=== PATIENT | female | born 1995 | race Caucasian/White ===

== ENCOUNTER 2017-04-24 14:20 | Inpatient (IN) | payer OTHER ==
[~2017-04-24] VITALS: Ht 160 cm; Wt 53.5 kg
--- NOTE | 2017-04-24 14:50 | NUR ---
Intake assessment; Patient is a 21 year old female, AOX4, presented to [facility] to detoxify from ETOH and Klonopin. Patient flew in from [place] accompanied by a friend and arrived at intake at approximately 1430. She is the primary source of information. Patient appears calm, cooperative and slightly nervous. Patient's admitting vital signs are as follows; BP 103/68, HR 79, temperature 97.3, Respiration 18, Spo2 98%, denies pain and allergies. Educated patient regarding unit protocol and policies, patient verbalized understanding. Will continue with further nursing assessment when patient is up on the unit.
[2017-04-24] MEDS ORDERED: QUET50TA PO (14:52)
[2017-04-24] MEDS ORDERED: FLUO20TA28 PO (14:52)
[2017-04-24] MEDS ORDERED: ZOLP10TA6 PO (14:52)
[2017-04-24] MEDS ORDERED: ONDANSETRON 4 MG/2 ML VIAL IM PRN (15:30)
[2017-04-24] MEDS ORDERED: LORAZEPAM 1 MG TABLET PO PRN ×2 (15:30)
[2017-04-24] MEDS ORDERED: LOPERAMIDE HCL 2 MG CAPSULE PO PRN ×2 (15:30)
[2017-04-24] MEDS ORDERED: MIRALAX 17 GM POWD.PACK PO PRN (15:30)
[2017-04-24] MEDS ORDERED: MAG HYDROX/AL HYDROX/SIMETH 30 ML LIQUID UDC PO PRN (15:30)
[2017-04-24] MEDS ORDERED: LORAZEPAM 2 MG/1 ML VIAL IM PRN (15:30)
[2017-04-24] MEDS ORDERED: ONDANSETRON ODT 4 MG TAB.RAPDIS SL PRN (15:30)
[2017-04-24] MEDS ORDERED: diphenhydrAMINE 50 MG CAPSULE PO PRN (15:30)
[2017-04-24] MEDS ORDERED: DICYCLOMINE HCL 20 MG TABLET PO PRN (15:30)
[2017-04-24] MEDS ORDERED: ACETAMINOPHEN 325 MG TABLET PO PRN (15:30)
--- NOTE | 2017-04-24 15:30 | NUR ---
Admission note; Patient is a 21 year old female, AOX4, presented to [facility] to detoxify from ETOH and Klonopin. Patient flew in from [place] accompanied by a friend and arrived at intake at approximately 1430. She is the primary source of information. Patient is cooperative,slightly nervous complaining of episodes of loose stool, mild headache. Patient's admitting vital signs are as follows; BP 103/68, HR 79, temperature 97.3, Respiration 18, Spo2 98%, denies pain. Patient denies allergies or history of seizures. Discussed substance use history. Patient started drinking alcohol at age [age] years old, but did not develop a pattern of daily dependence until she reached the age of 19 and has been struggling with alcoholism since that time. For the past 1.5 years, patient reports consuming up to eight servings of alcohol on a daily basis, each serving being either 10 ounces of wine or 4-6 mL of vodka. Last drink was consumed on the evening prior to admission. She also reported taking prescription clonazepam 1-3 mg daily , prescribed to her when she was 19 y/o for anxiety, last used clonazepam 4 days prior to admission. She has struggled with multiple attempts at sobriety. Patient has never been to detox before. Discussed medical and psych history. Patient was diagnosed with Anxiety, insomnia and was recently hospitalized in a psychiatric facility after a suicide attempt end of February 2017. She reports three suicide attempts in the past, multiple healed scars on bilateral wrist noted, sites are intact. Patient lives with a room mate in [place].Patient does not have a primary care physician. patient's psychiatrist is Dr. Shelby Tucker. Patient refuses PNA vaccination. Current CIWA is 2. Dr. Degroot notified. Patient oriented to unit by EX ASSISTANT/PROGRAM DIRECTOR. Safety measures secured. She denies passive or active suicidal ideations. Will continue to monitor patient.
[2017-04-24 16:00] VITALS: BP 113/80
[2017-04-24 16:07] LABS: *AMPHETAMINE, URINE NEGATIVE (NEGATIVE); *BARBITURATE, URINE NEGATIVE (NEGATIVE); *CANNABINOID, URINE NEGATIVE (NEGATIVE); *COCCAINE, URINE NEGATIVE (NEGATIVE); *OPIATE, URINE NEGATIVE (NEGATIVE); *PHENCYCLIDINE SCREEN,URINE NEGATIVE (NEGATIVE)
[2017-04-24 16:26] LABS: *URINE HCG, QUAL NEGATIVE (NEGATIVE)
[2017-04-24] MEDS ORDERED: THIAMINE HCL 200 MG/2 ML VIAL IM ONE (17:00)
--- NOTE | 2017-04-24 18:24 | NUR ---
End of shift note; Patient is AOX4. Patient was seen and evaluated by MD. Patient to start Ativan taper on 04/25/17. Stool sample was collected for occult blood and MRSA nares collected. Patient remained compliant with treatment plan. All safety measures secured. Met all needs.
--- NOTE | 2017-04-24 19:10 | NUR ---
Start of Shift Patient Received. Patient is in her room, awake, alert and oriented. Patient is noted reading a book and verbalized Im just trying to pass time in reading. Patient is a 21 year old female, admitted on 04/24/17 for ETOH and Benzo Dependence, under the care of Dr. Degroot. Patient is able to verbalize no known allergies, wishes to be full code, following a regular diet, skin noted intact with several scars due to self-mutilation. Patient denies suicidal and homicidal ideations. Patients past medical history verbalized as insomnia, anxiety, ADD, and Suicide Attempt. Per endorsement, patient is set to start a 4 day Ativan taper Tomorrow 04/25/17 with a one time dose to be given tonight at 2100. All needs attended to promptly. Will continue plan of care as ordered.
[2017-04-24 19:46] LABS: *OCCULT BLOOD STOOL POSITIVE (NEGATIVE)
[2017-04-24 20:04] VITALS: BP 115/71
[2017-04-24] MEDS ORDERED: LORAZEPAM 1 MG TABLET PO SCH (21:00)
[2017-04-24 21:48] LABS: ETHANOL < 3 MG/DL (0-0)
[2017-04-24 21:49] LABS: ALKALINE PHOSPHATASE 101 U/L (50-136); AMYLASE 97 U/L (25-115); BILIRUBIN,TOTAL 0.3 mg/dL (0.2-1.0); CARBON DIOXIDE 31 mmol/L (21-32); CHLORIDE 103 mmol/L (98-107); CREATININE 0.8 mg/dL (0.6-1.3); GLUCOSE 84 mg/dL (74-106); LIPASE 113 U/L (73-393); MAGNESIUM 1.9 mg/dL (1.8-2.4); POTASSIUM 3.8 mmol/L (3.5-5.1); TOTAL PROTEIN, SERUM 7.7 g/dL (6.4-8.2); UREA NITROGEN, BLOOD 15 mg/dL (7-18)
[2017-04-24 22:01] LABS: THYROID STIMULATING HORMONE 1.847 mIU/mL (0.358-3.740)
[2017-04-24 22:02] LABS: BASOPHILS # (AUTO) 0.1 K/uL (0.0-8.0); BASOPHILS % (AUTO) 0.6 % (0.0-2.0); EOSINOPHILS # (AUTO) 0.3 K/uL (0.0-0.7); EOSINOPHILS % (AUTO) 2.7 % (0.0-7.0); HEMATOCRIT 43.6 % (37-47); HEMOGLOBIN 14.9 G/DL (12.0-16.0); LYMPHOCYTES # (AUTO) 3.4 K/UL (0.8-4.8); LYMPHOCYTES % (AUTO) 36.3 % (20.5-51.5); MEAN CORPUSCULAR HEMOGLOBIN 32.9 UUG (27.0-31.0); MEAN CORPUSCULAR HGB CONC 34 g/dL (32.0-37.0); MONOCYTES # (AUTO) 0.7 K/UL (0.1-1.30); MONOCYTES % (AUTO) 7.3 % (0.0-11.0); NEUTROPHILS # (AUTO) 4.9 K/UL (1.8-8.9); NEUTROPHILS % (AUTO) 53.1 % (38.5-71.5); PLATELET COUNT (AUTO) 283 K/UL (150-450); RED BLOOD CELL COUNT(AUTO) 4.54 MIL/UL (4.2-5.4); WHITE BLOOD COUNT (AUTO) 9.4 K/UL (4.0-11.2)
[2017-04-24 22:11] VITALS: BP 126/60
[2017-04-24 22:36] LABS: ALANINE AMINOTRANSFERASE 24 U/L (14-59)
[2017-04-24 22:44] LABS: ASPARTATE AMINOTRANSFERASE 32 U/L (15-37)
--- NOTE | 2017-04-24 23:30 | NUR ---
PRN Medication Reassessment Patient noted in the hallway returning from the snack room. Patient verbalized "I just woke up really thirsty. But Im going to go back to sleep." Patient was also able to verbalize "the medication really helped me to calm down enough to fall asleep." Patient noted getting back into bed. Will continue to monitor.
[2017-04-25 00:49] VITALS: BP 114/73
[2017-04-25 04:42] VITALS: BP 116/79
--- NOTE | 2017-04-25 07:06 | NUR ---
Start of Shift Endorsement received from nightshift nurse. Pt is a 21 y/o female admitted for alcohol and Klonopin dependence. Pt has been placed on a 4 day Modified taper. Pt is tolerating the taper well AEB CIWA 3 at 0400. Pt received PRN Ativan and Benadryl during nightshift. Pt reports sleeping 6 hours. VS WNL. Full Code. PT is alert and oriented x4. Pt is in STABLE condition at this time. Remains compliant with medication and diet regimen. All needs have been met, All safety measures in place per hospital policy. Bed in lowest position, side rails up x2, call-light within reach. Will continue to monitor
--- NOTE | 2017-04-25 07:15 | NUR ---
End of Shift Patient is in bed sleeping but easily arousable to verbal stimuli. Breathing even and non labored. No signs of pain or discomfort noted. Patient is a 21 year old female, admitted on 04/24/17 for ETOH and Benzo Dependence, under the care of Dr. Degroot. Patient is able to verbalize no known allergies, wishes to be full code, following a regular diet, skin noted intact. Patient denies suicidal and homicidal ideations. Patients past medical history verbalized as insomnia, anxiety, ADD, and Suicide Attempt. Patient was given PRN Ativan for CIWA of 10 with medication noted to be effective. Reassessment CIWA noted to be 3. Patient was also given PRN Benadryl with medication noted to be effective. Patient was noted to sleep 6 hours. Lab resulted positive for occult stool with MD aware. No new orders due to patient previously diagnosed with Inflammatory Bowel Disease. All needs attended to promptly. Will continue plan of care as ordered.
[2017-04-25 08:00] VITALS: BP 91/57
[2017-04-25] MEDS: LORAZEPAM 1 MG TABLET PO SCH ×3 (08:31→21:19)
[2017-04-25] MEDS: MULTIVITAMINS,THERAPEUTIC TABLET PO SCH (08:31)
[2017-04-25] MEDS: FOLIC ACID 1 MG TABLET PO SCH (08:31)
[2017-04-25] MEDS: THIAMINE HCL 100 MG TABLET PO SCH (08:31)
[2017-04-25] MEDS ORDERED: TUBERCULIN,PURIF.PROT.DERIV. 5 TU/0.1 ML TEST ID ONE (09:00)
[2017-04-25] MEDS: IBUPROFEN 400 MG TABLET PO PRN ×2 (10:41→21:19)
--- NOTE | 2017-04-25 10:41 | NUR ---
PRN Motrin Administered PRN Motrin for 5/10 headache.
--- NOTE | 2017-04-25 11:20 | NUR ---
Medication Re-assessment Pt reports relief from pain, reports 2/10 pain at this time. Medication was effective.
--- NOTE | 2017-04-25 11:52 | NUR ---
Transfer of care Endorsed pt to Cira HARRISON.
[2017-04-25 12:00] VITALS: BP 116/82
[2017-04-25] MEDS ORDERED: LORAZEPAM 1 MG TABLET PO ONE (12:00)
--- NOTE | 2017-04-25 12:00 | NUR ---
ASSUMED CARE FOR PT.
--- NOTE | 2017-04-25 12:30 | NUR ---
A ONE TIME DOSE OF ATIVAN ORDERED PER MD AND ADMINISTERED. CIWA 11. WILL MONITOR EFFECTIVENESS.
--- NOTE | 2017-04-25 13:30 | NUR ---
ATIVAN EFFECTIVE CIWA 3. SHE IS LAYING IN BED AND STATES SHE FEELS MORE COMFORTABLE.
[2017-04-25 16:00] VITALS: BP 128/77
--- NOTE | 2017-04-25 19:03 | NUR ---
END OF SHIFT: PT CONTINUES ON ATIVAN TAPER. AN EXTRA 2 MG DOSE OF ATIVAN ORDERED PER MD.PT C/O EXTREME ANXIETY. SHE PRESENTS WITH ANXIOUS MOOD AND ISOLATED IN HER ROOM A LOT TODAY. ENCOURAGED GROUP ATTENDANCE. ENCOURAGED INCREASED FLUIDS AND PT COMPLIANT. LAST CIWA 3. WILL PASS SHIFT REPORT TO ONCOMING NIGHT NURSE.
--- NOTE | 2017-04-25 19:10 | NUR ---
Start of Shift Patient Received. Patient is in her room, awake, alert and watching TV. Patient is a 21 year old female, admitted on 04/24/17 for ETOH and Benzo Dependence, under the care of Dr. Degroot. Patient is able to verbalize no known allergies, wishes to be full code, following a regular diet, skin noted intact with several scars due to self mutilation. Patient denies suicidal and homicidal ideations. Patients past medical history verbalized as insomnia, anxiety, ADD, and Suicide Attempt. Per endorsement, Patient started on Ativan taper and was given an extra dose of Ativan for increased anxiety. Medication noted to be effective. All needs attended to promptly. Will continue plan of care as ordered.
[2017-04-25 20:30] VITALS: BP 113/61
[2017-04-25] MEDS: QUETIAPINE FUMARATE 200 MG TABLET PO SCH (21:19)
--- NOTE | 2017-04-25 21:20 | NUR ---
PRN Medication Administration Patient complaining of increased generalized pain 5/10. Patient was given PRN Motrin with routine medications. Will continue to monitor.
--- NOTE | 2017-04-25 22:30 | NUR ---
PRN Medication Reassessment Patient noted in bed watching TV. Patient was given PRN Motrin for generalized pain. Patient was able to verbalize "the Motrin really helped me. I dont feel as achy as I did." Will continue to monitor.
[2017-04-26 00:20] VITALS: BP 110/64
--- NOTE | 2017-04-26 00:20 | NUR ---
Vitals/ Episode of Possible Hallucination HOUSEHOLD COOK reported to primary nurse that patient was noted sleeping but arousable to verbal stimuli. Breathing even and non labored. Patient was noted to verbalizing of visual hallucinations and states "I feel like Im sleeping but Im awake. I thought I knocked my drink over so I leaned over to clean it and realized there was nothing there." Patient also verbalizing of back ache of 7/10. Upon assessment of patient per primary nurse, patient was noted sleeping on her back, arousbale to touch. Breathing even and non labored. Patient then noted to sit up and then go back to sleep easily. CN made aware. Will continue to monitor for further changes.
--- NOTE | 2017-04-26 01:20 | NUR ---
Episode of Possible Hallucination Patient is noted in bed and restless. Breathing even and non labored. Patient arousable to verbal stimuli. Patient verbalized "Im really restless and anxious. My back is hurting me." When asked if patient was aware of episodes, patient verbalized "yes I dont know why. Im sleeping but It feels like Im awake. Its like I forget where Im at." Per CN and Primary nurse patient placed on a 1:1 for safety. Patient denies suicidal ideations or intent to self harm. PRN Clonidine and Tylenol administered. CIWA noted to be 11. PROCESS CAMERA OPERATOR remains within arms reach for safety. Will continue to monitor.
[2017-04-26] MEDS: CLONIDINE HCL 0.1 MG TABLET PO PRN (01:26)
[2017-04-26 04:48] VITALS: BP 106/73
--- NOTE | 2017-04-26 07:08 | NUR ---
Start of Shift Endorsement received from nightshift nurse. Pt is a 21 y/o female admitted for alcohol and Klonopin dependence. Pt has been placed on a 4 day Modified taper. Pt is tolerating the taper well AEB CIWA 5 at 0400. Pt received PRN Motrin, Clonidine and Seroquel during nightshift. Pt reports sleeping 6 hours. VS WNL. Full Code. Pt reports feeling tired and not rested. PT was placed on a 1:1 observation during nightshift for safety reasons. Pt is not on a 1:1 at this time. PT is alert and oriented x4. Pt is in STABLE condition at this time. Remains compliant with medication and diet regimen. All needs have been met, All safety measures in place per hospital policy. Bed in lowest position, side rails up x2, call-light within reach. Will continue to monitor
--- NOTE | 2017-04-26 07:31 | NUR ---
End of Shift Patient is in bed sleeping but easily arousable to verbal stimuli. Breathing even and non labored. No signs of pain or discomfort noted. Patient is a 21 year old female, admitted on 04/24/17 for ETOH and Benzo Dependence, under the care of Dr. Degroot. Patient is able to verbalize no known allergies, wishes to be full code, following a regular diet, skin noted intact. Patient denies suicidial and homicidal ideations. Patients past medical history verbalized as insomnia, anxiety, ADD, and Suicide Attempt. Patient was noted with possible hallucinations and placed on a 1:1 for safety. Patient noted with a CIWA of 11 and was given PRN Clonidine and Tylenol for back pain. Patient continued to be restless throughout the shift and noted to be sleep talking with episodes of sitting up but arousable to name. Patient also noted sitting up and asking for her brother or at times reaching for objects. Once patient was redirected patient would easily fall back to sleep. FEATHERER remains within arms reach. Patient remains alert and oriented x3. All needs attended to promptly. Will endorse to continue plan of care as ordered.
[2017-04-26 08:00] VITALS: BP 107/56
[2017-04-26] MEDS: LORAZEPAM 1 MG TABLET PO SCH ×4 (08:56→20:32)
[2017-04-26] MEDS: FOLIC ACID 1 MG TABLET PO SCH (08:56)
[2017-04-26] MEDS: THIAMINE HCL 100 MG TABLET PO SCH (08:56)
[2017-04-26] MEDS: FLUOXETINE HCL 20 MG CAPSULE PO SCH (08:56)
[2017-04-26] MEDS: MULTIVITAMINS,THERAPEUTIC TABLET PO SCH (08:56)
[2017-04-26 12:00] VITALS: BP 115/73
[2017-04-26] MEDS: GABAPENTIN 300 MG CAPSULE PO SCH ×2 (14:50→20:32)
[2017-04-26 16:00] VITALS: BP 100/65
--- NOTE | 2017-04-26 18:44 | NUR ---
End of Shift Endorsement given to nightshift nurse. Pt is a 21 y/o female admitted for alcohol and Klonopin dependence. Pt has been placed on a 4 day Modified taper. Pt is tolerating the taper well AEB CIWA 2 at 1600. Pt did not receive any prn medications. Educated pt on s/e of medications. Encouraged to participate in groups and activities to learn new coping methods. Educated pt on deep breathing technique. Pt participated in groups and activities. Intake: 1332ml, Void x3, BM x1 VS WNL. Full Code. Pt reports feeling tired and not rested. PT is alert and oriented x4. Pt is in STABLE condition at this time. Remains compliant with medication and diet regimen. All needs have been met, All safety measures in place per hospital policy. Bed in lowest position, side rails up x2, call-light within reach. Will continue to monitor
--- NOTE | 2017-04-26 19:15 | NUR ---
START OF SHIFT Received 21 year old female patient admitted on 04/24/17 for ETOH and Klonopin dependency. Pt is full code with NKA. She reports a PMHx of insomnia, anxiety, ADD and suicide attempt. She reports using ETOH 3-8 servings (glass of wine/cocktails) daily for 1.5 years. Last dose was 4 glasses on 04/23/17. And Klonopin 1-3 mg daily for 1 year. Last dose was 1 mg on 04/20/17. Pt denies history of seizure. Pt placed on 4 day Ativan taper and tolerating well. Per endorsement, pt did not receive or request PRN medications. Pt is alert and oriented x4, breathing is even and unlabored. Safety measures in place. Will continue to monitor.
[2017-04-26 20:00] VITALS: BP 105/61
[2017-04-26] MEDS: QUETIAPINE FUMARATE 200 MG TABLET PO SCH (20:32)
[2017-04-26] MEDS: PRAZOSIN HCL 1 MG CAPSULE PO SCH (20:32)
[2017-04-27] VITALS: BP 112/63
[2017-04-27] MEDS: HYDROXYZINE PAMOATE 25 MG CAPSULE PO PRN (01:05)
[2017-04-27] MEDS: CLONIDINE HCL 0.1 MG TABLET PO PRN (01:05)
--- NOTE | 2017-04-27 01:05 | NUR ---
PRN CLONIDINE/VISTARIL Pt complains of anxiety, agitation and restlessness. PRN Clonidine and Vistaril administered as ordered. Breathing is even and unlabored, safety measures in place. Will monitor effectiveness of medications.
--- NOTE | 2017-04-27 02:05 | NUR ---
PRN CLONIDINE/VISTARIL REASSESSMENT PRN medications effective. Pt is lying in bed with eyes closed noted to be asleep. No facial grimacing noted. Respirations 16, breathing is even and unlabored. Safety measures in place. Will monitor.
[2017-04-27 04:00] VITALS: BP 105/70
--- NOTE | 2017-04-27 04:00 | NUR ---
CIWA DEFERRED CIWA deferred d/t pt lying in bed with eyes closed noted to be asleep. Respirations 16, breathing is even and unlabored. Safety measures in place. Will continue to monitor.
--- NOTE | 2017-04-27 07:01 | NUR ---
Start of Shift Endorsement received from nightshift nurse. Pt is a 21 y/o female admitted for alcohol and Klonopin dependence. Pt has been placed on a 4 day Modified taper. Pt is tolerating the taper well, mildly withdrawing at this time AEB CIWA 5 at midnight. Pt received PRN Clonidine and Vistaril during nightshift. Pt reports sleeping 7 hours. VS WNL. Full Code. Pt reports feeling tired and not rested. PT is alert and oriented x4. Pt is in STABLE condition at this time. Remains compliant with medication and diet regimen. All needs have been met, All safety measures in place per hospital policy. Bed in lowest position, side rails up x2, call-light within reach. Will continue to monitor
--- NOTE | 2017-04-27 07:07 | NUR ---
END OF SHIFT Pt is a 21 year old female patient admitted on 04/24/17 for ETOH and Klonopin dependency. Pt is full code with NKA. She reports a PMHx of insomnia, anxiety, ADD and suicide attempt. Pt placed on 4 day Ativan taper and tolerating well. At 0105 pt complained of anxiety and restlessness. She received PRN Clonidine and Vistaril. She slept a total of 7 hrs, Intake: 2000mL, Void:x1 BM:0 CIWA:5. Pt remains alert and oriented x4, breathing is even and unlabored. Safety measures in place. Will endorse to oncoming shift.
[2017-04-27 08:00] VITALS: BP 98/56
[2017-04-27] MEDS: FLUOXETINE HCL 20 MG CAPSULE PO SCH (09:04)
[2017-04-27] MEDS: MULTIVITAMINS,THERAPEUTIC TABLET PO SCH (09:05)
[2017-04-27] MEDS: THIAMINE HCL 100 MG TABLET PO SCH (09:05)
[2017-04-27] MEDS: LORAZEPAM 1 MG TABLET PO SCH ×3 (09:06→20:29)
[2017-04-27] MEDS: GABAPENTIN 300 MG CAPSULE PO SCH ×3 (09:06→20:29)
[2017-04-27] MEDS: FOLIC ACID 1 MG TABLET PO SCH (09:06)
[2017-04-27] MEDS ORDERED: PROPRANOLOL HCL 10 MG TABLET PO ONE (10:30)
[2017-04-27] MEDS ORDERED: LORAZEPAM 1 MG TABLET PO ONE (10:30)
[2017-04-27 12:00] VITALS: BP 103/55
[2017-04-27 16:00] VITALS: BP 109/63
--- NOTE | 2017-04-27 17:08 | NUR ---
Therapist encouraged client to attend daily group meetings at 11am and 3:30pm. Client stated that she was open for attending and would attend at 3:30pm. Therapist provided client with some additional information about the focus of the groups.
--- NOTE | 2017-04-27 18:56 | NUR ---
End of Shift Endorsement given to nightshift nurse. Pt is a 21 y/o female admitted for alcohol and Klonopin dependence. Pt has been placed on a 4 day Modified taper. Pt is tolerating the taper well AEB CIWA 2 at 1600. Pt did not receive any prn medications. Administered one time dose of Ativan 1mg and Inderal per Dr. Degroot. Educated pt coping mechanisms to deal with anxiety. . Educated pt on deep breathing technique. Pt participated in groups and activities. Intake: 2455ml, Void x4, BM x0 VS WNL. Full Code. Pt reports feeling tired and not rested. PT is alert and oriented x4. Pt is in STABLE condition at this time. Remains compliant with medication and diet regimen. All needs have been met, All safety measures in place per hospital policy. Bed in lowest position, side rails up x2, call-light within reach. Will continue to monitor
--- NOTE | 2017-04-27 19:15 | NUR ---
START OF SHIFT Received 21 year old female patient admitted on 04/24/17 for ETOH and Klonopin dependency. Pt is full code with NKA. She reports a PMHx of insomnia, anxiety, ADD and suicide attempt. She reports using ETOH 3-8 servings (glass of wine/cocktails) daily for 1.5 years. Last dose was 4 glasses on 04/23/17. And Klonopin 1-3 mg daily for 1 year. Last dose was 1 mg on 04/20/17. Pt placed on 4 day Ativan taper and tolerating well. Per endorsement, pt did not receive or request PRN medications. Pt is alert and oriented x4, breathing is even and unlabored. Safety measures in place. Will continue to monitor.
[2017-04-27 20:00] VITALS: BP 106/71
[2017-04-27] MEDS: PRAZOSIN HCL 1 MG CAPSULE PO SCH (20:29)
[2017-04-27] MEDS: QUETIAPINE FUMARATE 200 MG TABLET PO SCH (20:29)
[2017-04-28] VITALS: BP 105/70
[2017-04-28] MEDS: CLONIDINE HCL 0.1 MG TABLET PO PRN (00:58)
[2017-04-28] MEDS: HYDROXYZINE PAMOATE 25 MG CAPSULE PO PRN (00:58)
--- NOTE | 2017-04-28 00:58 | NUR ---
PRN CLONIDINE/VISTARIL Pt complains of anxiety/restlessness. PRN Clonidine and Vistaril administered as ordered. Breathing even and unlabored. Respirations 16. Safety measures in place. Will monitor effectiveness.
--- NOTE | 2017-04-28 01:58 | NUR ---
PRN CLONIDINE/VISTARIL REASSESSMENT PRN medications effective. Pt is lying in bed with eyes closed noted to be asleep. No facial grimacing. Respirations 16, breathing is even and unlabored, safety measures in place. Will continue to monitor.
[2017-04-28 04:00] VITALS: BP 102/67
--- NOTE | 2017-04-28 07:10 | NUR ---
END OF SHIFT Pt is a 21 year old female patient admitted on 04/24/17 for ETOH and Klonopin dependency. Pt is full code with NKA. Pt currently on day 4 day of Ativan taper and tolerating well. At 0058 pt received PRN clonidine/vistaril d/t aniety and restlessness. She slept a total of 5 hrs, Intake:2388mL Void:x3 BM:x1 CIWA:3. Pt remains alert and oriented x4, breathing is even and unlabored. Safety measures in place. Endorsed to oncoming shift.
[2017-04-28 07:38] LABS: HEPATITIS B SURFACE AG Negative (Negative)
--- NOTE | 2017-04-28 07:43 | NUR ---
START OF SHIFT NOTE Received report from night nurse, 21 year old female patient admitted on 04/24/17 for ETOH and Klonopin dependence. Pt is full code with NKA. Pt reports a PMH of insomnia, anxiety, ADD and suicide attempt. Pt reports using ETOH 3-8 servings (glass of wine/cocktails) daily for 1.5 years. Last dose was 4 glasses on 04/23/17,and Klonopin 1-3 mg daily for 1 year. Last dose was 1 mg on 04/20/17. Pt cont on 4 day Ativan taper. Pt received PRN Clonidine/Vistaril effective per night nurse, Last CIWA-3, Slept for 5 hours. Upon assessment, Pt is alert awake oriented x4 educated regarding plan of care for the day and medication regimen. Safety measures in place, call light within reach. Will cont to monitor.
[2017-04-28 08:00] VITALS: BP 97/64
[2017-04-28] MEDS: GABAPENTIN 300 MG CAPSULE PO SCH ×3 (08:36→20:31)
[2017-04-28] MEDS: FOLIC ACID 1 MG TABLET PO SCH (08:37)
[2017-04-28] MEDS: MULTIVITAMINS,THERAPEUTIC TABLET PO SCH (08:37)
[2017-04-28] MEDS: LORAZEPAM 1 MG TABLET PO SCH ×2 (08:37→20:30)
[2017-04-28] MEDS: THIAMINE HCL 100 MG TABLET PO SCH (08:37)
[2017-04-28] MEDS: FLUOXETINE HCL 20 MG CAPSULE PO SCH (09:54)
[2017-04-28 12:00] VITALS: BP 106/69
--- NOTE | 2017-04-28 12:03 | NUR ---
PRN ZOFRAN Pt c/o nausea, no emesis reported by pt, Administered PRN Zofran 4mg 1 tab SL per MD order. Will continue to monitor pt.
--- NOTE | 2017-04-28 12:24 | NUR ---
Therapist encouraged client to continue daily group attendance. Client expressed that she was wiling to continue attending group psychotherapy.
--- NOTE | 2017-04-28 12:33 | NUR ---
HERB REASSESSMENT Pt states that her nausea symptoms have improved. Medication effective. Will continue to monitor.
[2017-04-28 13:10] LABS: *FECAL FAT NEUTRAL Normal (.); *FECAL FAT TOTAL Normal (.)
[2017-04-28 16:00] VITALS: BP 103/65
--- NOTE | 2017-04-28 18:59 | NUR ---
END OF SHIFT NOTE Gave report to night nurse, 21 year old female patient admitted on 04/24/17 for ETOH and Klonopin dependence. Pt is full code with NKA. Pt reports a PMH of insomnia, anxiety, ADD and suicide attempt. Pt reports using ETOH 3-8 servings (glass of wine/cocktails) daily for 1.5 years. Last dose was 4 glasses on 04/23/17 and Klonopin 1-3 mg daily for 1 year. Last dose was 1 mg on 04/20/17. Pt cont on 4 day Ativan taper tolerating well. Pt received PRN Zofran x1 noted to be effective. Pt attended group and activities. Patient remained compliant with treatment plan. Last CIWA-3. Encouraged PO fluids as tolerated. Safety measures in place, Call light within reach. Pt endorsed to night nurse in stable condition.
[2017-04-28 20:00] VITALS: BP 104/75
--- NOTE | 2017-04-28 20:00 | NUR ---
Start of Shift Note: Report received from day shift nurse. Pt is a 21 yo female admitted on 04/24/17 for medically-supervised withdrawal from benzodiazepines and ETOH. Pt reports taking 1-3mg Klonopin daily for 1 year and drinking 3-8 serving of wine or mixed drinks daily for 1.5 years. Pt is on day 4 of a 4-day modified Ativan taper. Pt received with last CIWA=3, and PRN Zofran was given during day shift. Pt is full code status. Pt reports NKDA/NKFA. Pt is on a regular diet. PMHx: anxiety, insomnia, suicide attempt, ADD. Pt received in room, and reports tremor, anxiety, and tactile disturbances. Bed is in low position and locked, side rails up x2, call light within reach. Will continue to monitor.
[2017-04-28] MEDS: QUETIAPINE FUMARATE 200 MG TABLET PO SCH (20:30)
[2017-04-28] MEDS: MAGNESIUM HYDROXIDE 30 ML LIQUID UDC PO PRN (20:30)
--- NOTE | 2017-04-28 20:30 | NUR ---
PRN Milk of Mag: Patient complains of constipation. Patient reports no bowel movement in two days. Bowel sounds active in all quadrants. Administered PRN Milk of Magnesia as ordered. Will continue to monitor and reassess at end of shift.
[2017-04-28] MEDS: PRAZOSIN HCL 1 MG CAPSULE PO SCH (20:32)
[2017-04-29] VITALS: BP 94/50
--- NOTE | 2017-04-29 | NUR ---
CIWA Deferred: CIWA assessment is deferred for sleep. V/S stable. All safety precautions are in place. Will continue to monitor. Addendum: 04/29/17 at 0328 by DEVONTE CANTOR RN Amended: Links added.
[2017-04-29 04:00] VITALS: BP 94/69
--- NOTE | 2017-04-29 04:00 | NUR ---
ROSEMARY Deferred: Ordered 04:00 ROSEMARY deferred for sleep. V/S stable. All safety precautions are in place. Will continue to monitor. Addendum: 04/29/17 at 0441 by DEVONTE CANTOR RN Amended: Links added.
--- NOTE | 2017-04-29 07:42 | NUR ---
End of Shift Note: Pt is a 21 yo female admitted to [facility] on 04/24/17 for medically-supervised withdrawal from benzodiazepines and ETOH. Pt reports PMHx: anxiety, insomnia, suicide attempt, ADD. Pt reports NKDA/NKFA. Pt is full code status. Pt is on a regular diet. Pt reports taking 1-3mg Klonopin daily for 1 year and drinking 3-8 servings of wine or mixed drinks daily for 1.5 years. Pt is scheduled for last dose of a 4-day modified Ativan taper this morning. Scheduled medication regime effectively managed s/s of withdrawal this shift. Last CIWA=5 at 20:00. V/S stable throughout shift, with increased HR of 96 at 20:00. Total fluid intake this shift: 1092 ml; output: urine x 1 and BM x 0; PRN Milk of Mag was given for constipation, which was not effective, will endorse follow-up to day shift nurse. Pt is currently in bed and slept 8 hours this shift. All needs have been attended and met. Pt endorsed to day shift nurse.
--- NOTE | 2017-04-29 08:00 | NUR ---
start of shift note: received pt from retail shift manager nurse, pt is in stable condition at this time no s/s of pain or discomfort. pt is admitted to [facility] for etoh/benzo withdrawal/dependence. pt slept for 8 hrs and last ciwa was 1. will monitor pt for any changes and continue to monitor pt for A/R to taper medications.
[2017-04-29 09:00] VITALS: BP 138/73
[2017-04-29] MEDS ORDERED: LORAZEPAM 1 MG TABLET PO SCH (09:00)
[2017-04-29] MEDS: FLUOXETINE HCL 20 MG CAPSULE PO SCH (09:49)
[2017-04-29] MEDS: MULTIVITAMINS,THERAPEUTIC TABLET PO SCH (09:50)
[2017-04-29] MEDS: GABAPENTIN 300 MG CAPSULE PO SCH ×3 (09:50→21:13)
[2017-04-29] MEDS: FOLIC ACID 1 MG TABLET PO SCH (09:50)
[2017-04-29] MEDS: THIAMINE HCL 100 MG TABLET PO SCH (09:50)
--- NOTE | 2017-04-29 09:57 | NUR ---
PRN ADMINISTRATION: PT WITH COMPLAINTS OF CONSTIPATION MIRALX WAS ADMINISTERED, WILL MONITOR EFFECTIVENESS
--- NOTE | 2017-04-29 12:16 | NUR ---
Therapist spoke with client about attending group therapy today and client related that she was not feeling well during the first group. Client stated that she was feeling better and would attend group at 3:30pm today.
[2017-04-29 13:00] VITALS: BP 106/71
[2017-04-29] MEDS ORDERED: GABA-534 PO ×2 (14:00)
[2017-04-29] MEDS ORDERED: HYDR-3895 PO (14:00)
[2017-04-29] MEDS ORDERED: IBUP-1481 PO (14:00)
[2017-04-29] MEDS ORDERED: PRAZ1CAP2 PO (14:00)
[2017-04-29] MEDS: MAGNESIUM HYDROXIDE 30 ML LIQUID UDC PO PRN (16:14)
--- NOTE | 2017-04-29 16:14 | NUR ---
PRN ADMINISTRATION: PT COMPLAINED OF CONSTIPATION, MIRALAX UN-EFFECTIVE MOM WAS ADMINISTERED
[2017-04-29 16:43] LABS: *AMPHETAMINE, URINE NEGATIVE (NEGATIVE); *BARBITURATE, URINE NEGATIVE (NEGATIVE); *CANNABINOID, URINE NEGATIVE (NEGATIVE); *COCCAINE, URINE NEGATIVE (NEGATIVE); *OPIATE, URINE NEGATIVE (NEGATIVE); *PHENCYCLIDINE SCREEN,URINE NEGATIVE (NEGATIVE)
[2017-04-29 17:45] VITALS: BP 103/74
--- NOTE | 2017-04-29 19:50 | NUR ---
Start of Shift Note: Report received from day shift nurse. Pt is a 21 Y/O female admitted on 04/24/17 for medically-supervised withdrawal from ETOH and benzodiazepines. Pt reports drinking 3-8 serving of wine or mixed drinks daily for 1.5 years and taking 1-3mg Klonopin daily for 1 year. Pt has completed a 4-day modified Ativan taper and is to discharge tomorrow. Pt received with last CIWA=1, and PRN's Miralax and Milk of Mag were given during day shift for constipation. Full code, NKDA/NKFA, regular diet. PMHx: anxiety, insomnia, suicide attempt, and ADD. Pt received in room, and reports anxiety. Pt verbalizes readiness for discharge. Bed is in low position and locked, side rails up x2, call light within reach. Will continue to monitor.
--- NOTE | 2017-04-29 19:55 | NUR ---
PRN Reassessment: PRN Milk of Mag administered at 16:14/day shift was effective. Patient reports bowel movement.
[2017-04-29 20:00] VITALS: BP 107/71
[2017-04-29] MEDS: QUETIAPINE FUMARATE 200 MG TABLET PO SCH (21:13)
[2017-04-29] MEDS: PRAZOSIN HCL 1 MG CAPSULE PO SCH (21:13)
[2017-04-29] MEDS: HYDROXYZINE PAMOATE 25 MG CAPSULE PO PRN (21:14)
--- NOTE | 2017-04-29 21:14 | NUR ---
PRN Vistaril: Patient complains of increased anxiety. Administered PRN Vistaril as ordered. Will continue to monitor.
--- NOTE | 2017-04-29 22:15 | NUR ---
PRN Reassessment: Patient is in bed with eyes closed. Respirations are even and unlabored. No s/s of acute distress noted. PRN Vistaril effective AEB patient's ability to rest. Will continue to monitor.
[2017-04-30] VITALS: BP 96/62
--- NOTE | 2017-04-30 | NUR ---
CIWA Deferred: CIWA deferred for sleep. V/S stable. All safety precautions are in place. Will continue to monitor. Addendum: 04/30/17 at 0141 by DEVONTE CANTOR RN Amended: Links added.
[2017-04-30 04:00] VITALS: BP 102/74
--- NOTE | 2017-04-30 04:00 | NUR ---
CIWA Deferred: CIWA assessment is deferred for sleep. V/S stable. Will continue to monitor. Addendum: 04/30/17 at 0601 by DEVONTE CANTOR RN Amended: Links added.
--- NOTE | 2017-04-30 07:16 | NUR ---
End of Shift Note: Pt is a 21 Y/O female admitted to [facility] on 04/24/17 for medically-supervised withdrawal from ETOH and benzodiazepines. Pt reports PMHx: anxiety, insomnia, suicide attempt, ADD. Full code, NKDA/NKFA, regular diet. Pt reports drinking 3-8 servings of wine or mixed drinks daily for 1.5 years and taking 1-3mg Klonopin daily for 1 year. Pt has completed a 4-day modified Ativan taper and is to discharge today. Scheduled medication regime effectively managed s/s of withdrawal this shift, in addition to PRN Vistaril for anxiety. Last CIWA=2 at 20:00. V/S stable throughout shift, with increased HR of 86 at 20:00 and 87 at 00:00. Total fluid intake this shift: 532 ml; output: urine x 3 and BM x 2. Pt is currently in bed and slept 8 hours this shift. All needs have been attended and met. Pt endorsed to day shift nurse.
--- NOTE | 2017-04-30 07:20 | NUR ---
Start of shift Pt was admitted for ETOH and benzo dependence. Pt has a PMHx of insomnia, anxiety, ADD and a suicide attempt. Pt is a full code, on a regular diet and states she has NKA. Pt has completed an ativan taper without any ASE. Pt states that she feels ready for discharge. All needs addressed at this time. Will continue to monitor pt.
[2017-04-30 08:00] VITALS: BP 106/75
[2017-04-30] MEDS: MULTIVITAMINS,THERAPEUTIC TABLET PO SCH (08:32)
[2017-04-30] MEDS: FLUOXETINE HCL 20 MG CAPSULE PO SCH (08:33)
[2017-04-30] MEDS: FOLIC ACID 1 MG TABLET PO SCH (08:33)
[2017-04-30] MEDS: THIAMINE HCL 100 MG TABLET PO SCH (08:33)
[2017-04-30] MEDS: GABAPENTIN 300 MG CAPSULE PO SCH (08:33)
--- NOTE | 2017-04-30 10:00 | NUR ---
Discharge note Pt was admitted for ETOH and benzo dependence. Pt has a CIWA of 2 d/t mild tremors and mild anxiety. Pt VS are WNL. Pt LBM 04/29/17. Pt denies SI/HI. Pt states that she feels ready for discharge. Pt verbalized her understanding of the discharge instructions. All needs addressed at this time. Pt prescriptions, medications, discharge packet and all belongings returned to pt. Pt ID band removed, pt ambulated off of with with [employer], left facility via [facility] for [facility].
== END 2017-04-30 10:00 | disposition other institution (70) | DRG 895 ==
LOC: SRC 14:23
PROVIDERS: ADMIT Internal Medicine; ATTEND Internal Medicine
PROC: HZ2ZZZZ Detoxification Services for Substance Abuse Treatment (ICD-10-PCS; principal; 2017-04-24)
PROC: HZ41ZZZ Group Counseling for Substance Abuse Treatment, Behavioral (ICD-10-PCS; 2017-04-26)
PROC: HZ31ZZZ Individual Counseling for Substance Abuse Treatment, Behavioral (ICD-10-PCS; 2017-04-27)
DX: F10.230 Alcohol dependence with withdrawal, uncomplicated (principal); F13.20 Sedative, hypnotic or anxiolytic dependence, uncomplicated; F33.3 Major depressive disorder, recurrent, severe with psychotic symptoms; Y90.9 Presence of alcohol in blood, level not specified; Z91.5 Personal history of self-harm; Z81.1 Family history of alcohol abuse and dependence; Z81.8 Family history of other mental and behavioral disorders; F17.210 Nicotine dependence, cigarettes, uncomplicated; G47.00 Insomnia, unspecified; F41.9 Anxiety disorder, unspecified; F12.10 Cannabis abuse, uncomplicated; K52.9 Noninfective gastroenteritis and colitis, unspecified; K59.00 Constipation, unspecified; Z79.899 Other long term (current) drug therapy; F12.90 Cannabis use, unspecified, uncomplicated
CPT/HCPCS: 36415; 70030-TC; 71010; 80307; 83690; 83735; 84443; 84703; 85025; 86592; 86625; 86705; 86803; 87046; 87177; 87340; 87806; 89055; A4663; G0480; J3411; Q0162; Q0163